=== PATIENT | female | born 1970 | race American Indian/Alaskan Native ===

== ENCOUNTER 2017-05-09 08:38 | Outpatient (CLI) | payer OTHER ==
--- NOTE | 2017-05-09 10:37 | XRay Report ---
Standing lumbar spine with lateral flexion and extension imaging: Minimal anterior spurring is identified at the superior margins of L4 and L5. Mild narrowing of the L5-S1 interspace. The remaining interspaces are unremarkable. The vertebral height is well maintained at all levels. No subluxations identified. The apophyseal joints are aligned and preserved. The bones are well-mineralized. Impressions: Decreased L5-S1 disc height.
== END 2017-05-09 08:39 | disposition home or self-care (01) ==
LOC: SPVIMAG 08:38
PROVIDERS: ATTEND Physical Medicine & Rehabilitation
DX: M53.86 Other specified dorsopathies, lumbar region (principal)
CPT/HCPCS: 72110